=== PATIENT | male | born 1995 | race Caucasian/White ===

== ENCOUNTER → 2020-07-10 10:09 | Outpatient (BNVA) | payer BC, SELFPAY | PROVIDERS: Visit Provider Nurse Practitioner Family | DX: Z13.220 Encounter for screening for lipoid disorders (principal); Z13.1 Encounter for screening for diabetes mellitus | CPT/HCPCS: 80053; 80061 ==

== ENCOUNTER → 2021-07-16 09:12 | Outpatient (BNVA) | payer BC, SELFPAY | PROVIDERS: Visit Provider Nurse Practitioner Family | DX: Z20.822 Contact with and (suspected) exposure to COVID-19 (principal); T78.40XA Allergy, unspecified, initial encounter; R05.9 Cough, unspecified | CPT/HCPCS: 87635 ==

== ENCOUNTER → 2023-02-01 15:20 | Outpatient (BNVA) | payer BC, SELFPAY | PROVIDERS: PCP Nurse Practitioner Family; Visit Provider Nurse Practitioner Family | DX: R21 Rash and other nonspecific skin eruption (principal) | CPT/HCPCS: 80053; 85025; 86038; 86140 ==

== ENCOUNTER 2023-04-25 10:45 | Day surgery (SDC) | payer BC, SELFPAY ==
[2023-03-23 08:35] VITALS: BMI 31.3
[2023-04-25] VITALS (10 sets, daily range): BP systolic 126–163; BP diastolic 61–93; PULSE 64–94; RESP 15–20; TEMP 36.2–36.8; O2SAT 96–100
[2023-04-25] MEDS: sodium chloride 0.9% 1,000 ML 30 ML IV (11:22)
--- NOTE | 2023-04-25 11:55 | P.ANESASSM_ITS ---
Pre-Anesthetic Assessment Height/Weight: Height 1.7 m Weight 90.718 kg Temp Pulse Resp BP Pulse Ox O2 Del Method 97.2 F L 64 18 152/77 100 Room Air 04/25/23 11:02 04/25/23 11:02 04/25/23 11:02 04/25/23 11:02 04/25/23 11:02 04/25/23 11:04 Operation Date: 04/25/23 12:25 Proposed Procedures p lap umbilical hernia with mesh 59449, K42.9(Not Applicable) - Tyron Mock DO Familial anesthetic complications: None Was Beta Paxton taken within 24 hours: N/A Was Clonidine taken within 24 hours: N/A Last intake: Intake Last Liquid Date 04/24/23 Last Liquid Time 23:00 Last Solid Date 04/24/23 Last Solid Time 21:00 Social Tobacco (chews) and No alcohol Exam alert, oriented x 3, clear to auscultation bilaterally and regular rate & rhythm Airway Mallampati: Class II Dentition: chipped and full GI Gastroesophageal Reflux Disease Anesthetic Plan ASA status: 2 Anesthesia: General Risk of > 500 ml blood loss (7ml/kg in children): No Medications/Allergies Home Medications Medication Instructions Recorded Confirmed Last Taken Type phentermine 8 mg tablet 35.7 mg PO ONCE 02/15/23 03/23/23 03/23/23 History omeprazole 20 mg capsule,delayed 20 mg PO DAILY 03/23/23 04/22/23 03/23/23 History release Allergies Allergy/AdvReac Type Severity Reaction Status Date / Time No Known Allergies Allergy Verified 03/14/23 15:23 Current Medications Generic Name Dose Route Start Last Admin Trade Name Tigreq PRN Reason Stop Dose Admin Sodium Chloride 1,000 mls @ 30 mls/hr 04/25/23 11:00 04/25/23 11:22 Sodium Chloride 0.9% IV 04/26/23 10:59 30 mls/hr .Q24H AHMET Administration PFSH Anesthesia Surgical History Hx of myringotomy Family History Father CAD (coronary artery disease) Diabetes Mother Hyperlipidemia Social History (Reviewed 03/14/23 @ 16:17 by ADELE Richards Smoking and tobacco status: current every day smoker smokeless tobacco Smokeless tobacco user: chewing tobacco Alcohol intake: current Alcohol intake frequency: holidays/special occasions only Substance/Drug Use: never Adopted: No Caregiver/support person: No Lives independently: No Household members: family service: Yes status: Discharged branch: [employer] Sexually active: Yes Do you think of yourself as: Straight/Heterosexual Current gender identity: Male Data Anesthesia Cardiac Studies: No Data to Display
--- NOTE | 2023-04-25 12:19 | PM.HP ---
Providers/Chief Complaint Primary Care Provider: GILL Olivera Chief Complaint: 88760 K42.9 History of Present Illness Michael Bundy is a 27 year old male Medications/Allergies Home Medications Medication Instructions Recorded Confirmed Last Taken Type phentermine 8 mg tablet 35.7 mg PO ONCE 02/15/23 03/23/23 03/23/23 History omeprazole 20 mg capsule,delayed 20 mg PO DAILY 03/23/23 04/22/23 03/23/23 History release Allergies Allergy/AdvReac Type Severity Reaction Status Date / Time No Known Allergies Allergy Verified 03/14/23 15:23 PFSH Acute PFSH: Surgical History Hx of myringotomy Family History Father CAD (coronary artery disease) Diabetes Mother Hyperlipidemia Social History Smoking and tobacco status: current every day smoker smokeless tobacco Smokeless tobacco user: chewing tobacco Alcohol intake: current Alcohol intake frequency: holidays/special occasions only Substance/Drug Use: never Adopted: No Caregiver/support person: No Lives independently: No Household members: family service: Yes status: Discharged branch: [employer] Sexually active: Yes Do you think of yourself as: Straight/Heterosexual Current gender identity: Male Vitals/I&O/Wt Last Vital Signs Temp 97.2 F L 04/25/23 11:02 Pulse 64 04/25/23 11:02 Resp 18 04/25/23 11:02 BP 152/77 04/25/23 11:02 Pulse Ox 100 04/25/23 11:02 O2 Del Method Room Air 04/25/23 11:04 Physical Exam Narrative: UMBILICAL HERNIA MEASURES ABOUT 1 CM IN DIAMETER PREOPERATIVELY A&P Assessment and plan (1) Umbilical hernia: Plan Laparoscopic repair of umbilical hernia with mesh Attestations Medical Necessity Statement*: home Coding Level of Care Code Acute Code for Chg Fwd Diagnoses Umbilical hernia K42.9
[2023-04-25] MEDS: ceFAZolin 2,000 MG in sodium chloride 0.9% (plus) 50 ML 100 MG IV (12:57)
[2023-04-25] MEDS: lidocaine-epi 2% 20 mL INJ 10 ML INJECTION (13:48)
--- NOTE | 2023-04-25 13:53 | PM.OP ---
Operative Report Date of procedure: April 25, 2023 Pre-op diagnosis: Reducible umbilical hernia Post-op diagnosis: Same Procedure done: Laparoscopic repair of reducible umbilical hernia with mesh Implants: 11 cm round Ventralight mesh Specimens removed/disposition: Hernia sac Surgeon: Dr. Tyron Mock DO Anesthesia: General Estimated blood loss (mL): 5 Complications: None apparent Brief History: This very pleasant 27-year-old gentleman who presented to my office with a reducible umbilical hernia. Laparoscopic repair with mesh was indicated. The risk benefits were explained and documented. Procedure: Patient was wheeled into the operative room and placed on the OR table in a supine position. Abdomen was inspected prepped and draped in usual sterile fashion. Time-out was performed and all present were in agreement. A 15 blade scalp was used to make a 5 millimeter incision left upper quadrant. A Veress needle was placed into the incision and intra-abdominal insufflation was brought to 15 millimeters of mercury. A 12 millimeter trocar was placed into the left lower quadrant. The energy but device was then used to cut out the hernia sac. A 6 inch ventral light mesh was placed into the abdomen and brought up through the umbilicus using an the Alistair-Glenda. The mesh was then tacked in place in a double crown fashion. The skeleton of the mesh was removed via the left lower quadrant. The hernia sac was then removed from the abdomen via the left lower quadrant. The left lower quadrant port site was closed with an 0 Vicryl suture in a Alistair-Glenda in a [id number] fashion. Incisions were closed with 4 O Vicryl in a subcuticular interrupted fashion. Skin glue was applied. A dressing that included cotton balls and a Tegaderm was placed over the umbilicus. Patient tolerated the procedure well.
[2023-04-25] MEDS: HYDROcodone-acetaminophen 10-325 mg Tablet 1 TAB PO (15:02)
--- NOTE | 2023-04-25 15:34 | ANE.PACU2 ---
Inpatient post-anesthesia follow up: Airway intact: Yes Vital signs: Temperature 97.5 F Pulse Rate 72 Respiratory Rate 18 Blood Pressure 161/91 Pulse Oximetry 96 Oxygen Delivery Me thod Room Air Oxygen Flow Rate 6 Fraction of Inspir ed Oxygen Hydration adequate: Yes Nausea and vomiting: Yes Pain level: 1 Mental status: Baseline
== END 2023-04-25 15:45 | disposition home or self-care (01) ==
PROVIDERS: PCP Nurse Practitioner Family; Visit Provider Surgery
PROC: 0WQF4ZZ Repair Abdominal Wall, Percutaneous Endoscopic Approach (ICD-10-PCS; CPT 49591; principal; 2023-04-25 12:25)
DX: K42.9 Umbilical hernia without obstruction or gangrene (principal); F17.290 Nicotine dependence, other tobacco product, uncomplicated; K21.9 Gastro-esophageal reflux disease without esophagitis
CPT/HCPCS: 49591; 88302; C1781; J0690; J1100; J1170; J2250; J2405; J2704; J2710; J3010; J3490; J7030

== ENCOUNTER 2023-11-21 08:17 | Outpatient (CLI) | payer OTHER, SELFPAY ==
--- NOTE | 2023-11-21 08:32 | XRR_ITS ---
PROCEDURE INFORMATION: Exam: XR Lumbosacral Spine Exam date and time: 11/21/2023 8:46 AM Age: 28 years old Clinical indication: Low back pain; Prior surgery; Surgery date: 6+ months; Surgery type: Hernia; Additional info: Lower back arthritis/kidney dz TECHNIQUE: Imaging protocol: Radiologic exam of the lumbosacral spine. Views: 2 or 3 views. COMPARISON: No relevant prior studies available. FINDINGS: Bones/joints: No acute fracture. Normal alignment. Preserved intervertebral disc spaces. Soft tissues: Unremarkable. XR/XR lumbar spine 2-3V* [id number] IMPRESSION: No acute findings.
[2023-11-21 08:57] LABS: Add Urine Microscopic? NO; Charge for UA Resulting for Rev
[2023-11-21 09:23] LABS: Alanine Aminotransferase 25 U/L (0-41); Albumin Level 4.3 g/dL (3.5-5.2); Alkaline Phosphatase 74 U/L (40-130); Anion Gap 15.2 (5-19); Aspartate Amino Transferase 17 U/L (0-40); Blood Urea Nitrogen 14 mg/dL (6-20); Carbon Dioxide 26 mmol/L (22-29); Chloride 102 mmol/L (98-107); Globulin 2.6 g/dL (1.3-4.6); Glomerular Filtration Rate 79.7 mL/min (90-130); Glucose 99 mg/dL (65-115); Osmolality Calculated 289 mOsm/kg (285-295); Potassium 4.2 mmol/L (3.5-5.1); Sodium 139 mmol/L (136-145); Total Bilirubin 0.5 mg/dL (0.15-1.2); Total Protein 6.9 g/dL (6.6-8.7)
[2023-11-21 10:33] LABS: Bilirubin Urine Neg (Negative); Blood Urine Neg (Negative); Glucose Urine UA Norm (Normal); Ketones Urine Negative (Negative); Leukocyte Esterase Urine Negative (Negative); Nitrate Urine Negative (Negative); Protein Urine Neg (Negative); Specific Gravity, Urine 1.005 (1.005-1.030); Urine Appearance Clear (CLEAR); Urine Color Yellow (Yellow); Urobilinogen Urine Neg (Negative); pH Urine 7 (5-7)
== END 2023-11-21 08:18 | disposition home or self-care (01) ==
PROVIDERS: PCP Nurse Practitioner Family; Visit Provider Chiropractor
DX: M47.816 Spondylosis without myelopathy or radiculopathy, lumbar region (principal); N28.9 Disorder of kidney and ureter, unspecified; Z98.890 Other specified postprocedural states
CPT/HCPCS: 36415; 72100; 80053; 81003